=== PATIENT | female | born 1970 | race Caucasian/White ===

== ENCOUNTER 2018-07-10 18:00 | Emergency (ER) | payer MEDICAID ==
[2015-02-13 11:13] VITALS: Wt 90.7 kg
[~2018-07-10 18:00] MED LIST: ALB0.5 INH; ALB18R INH; ALBU2.5V36 IH; ALBU8.5H12 IH; ALBUTEROL INH; AMPH15TA3 PO; AUG500; AUG875 PO; AZIT1PAC21 PO; BENZ100C4 PO; CEF300 PO; CELE-1 PO; CEP500 PO; CEPH250C37 PO; CITA-156 PO; COUGH SYRUP PO; CYCL10TA29 PO; DEMEROL; DEXT10TA9 PO; DIA2 PO; DIA5 PO; DIAZ2TAB72 PO; DIAZEPAM; DIC10 PO; DIPH-740 PO; DOXY-179 PO; DOXY150T6 PO; FAMO20TA28 PO; GABA-547 PO; HCTZ25 PO; HYD2 PO; HYDR-653 PO; HYDR-654 PO; HYDR1TAB; HYDR2TAB41 PO; HYDR2TAB42 PO; HYDR2TAB74 PO; HYDROCHLORTHIAZIDE PO; IPRA3AMP10 IH; KET10 PO; LABE100T28 PO; LACT10SO58 PO; LIDO700A29 TD; LISI2.5T60 PO; LOR5 PO; LOR5/325; LORA10CA3 PO; MEP50 PO; MEPE50TA29; METH0.2T PO; METH0.2T6 PO; METO-566 PO; MULT-859 PO; NO ROUTINE MEDS; NOR10/325 PO; OMEP-114 PO; OND4 PO; ONDA4TAB PO; OXYC-865 PO; OXYC10TA67 PO; OXYC1TAB54 PO; OXYC1TAB78 PO; PANT40TA65 PO; PENI-22 PO; PER PO; PNV1TABL92 PO; PRE20 PO; PRED-1 PO; PRED20TA6 PO; PREN-67 PO; PRO25; PRO25 FT; PRO25 PO; PROM-100 PO; PROM-110 PO; PROM12.546 PO; PROM25S PR; SUCR1ORA17 PO; TRA50 PO; TRAZADONE PO; TRIA80OI13 TP; VENL37.594 PO; VENL75CA58 PO; ZOL5 PO
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
[2018-07-10] MEDS ORDERED: ALBUTEROL/IPRATROPIUM 3 ML NEB NEB ONE (18:30)
[2018-07-10] MEDS ORDERED: NS(*) 0.9% 1000 ML BAG 1,000 ML IV ONE (18:30)
[2018-07-10 19:22] LABS: PLATELET COUNT, AUTOMATED 257 K/uL (150-450)
[2018-07-10] MEDS ORDERED: PROMETHAZINE 25 MG/ML 1 ML AMP IVP ONE (19:25)
--- NOTE | 2018-07-10 19:44 | RADIOLOGY IMAGING REPORT ---
FACILITY: [facility] PATIENT NAME: Lucy Rudolph : 1970 MR: [id number] V: [id number] EXAM DATE: ORDERING PHYSICIAN: TONY HAWKINS TECHNOLOGIST: [place] [facility] [place] Rudolph : 1970 Visit/Account:[id number] Date of Sevice: 07/10/2018 CHEST PA LAT HISTORY: productive cough, fevers COMPARISON: 06/21/2015 FINDINGS: Cardiomediastinal contours: Normal Lungs and pleura: Normal Bones/soft tissues: Normal Other findings: None significant IMPRESSION: 1. Normal chest. No change. Report Dictated By: Shane Zuleta MD at 07/10/2018 7:38 PM Report E-Signed By: Shane Zuleta MD at 07/10/2018 7:39 PM WSN:[id number]
[2018-07-10] MEDS ORDERED: OSE75 PO (19:45)
[2018-07-10 20:30] VITALS: BP 117/73
== END 2018-07-10 20:29 | disposition home or self-care (01) ==
LOC: ER 18:24
DX: J11.1 Influenza due to unidentified influenza virus with other respiratory manifestations (principal)
CPT/HCPCS: 36415; 71046; 85025; 87502; 87653; 94640; 96361; 96374; 99284; J2550; J7030; J7620; 82040; 82247; 82310; 82374; 82435; 82565; 82947; 84075; 84132; 84155; 84295; 84450; 84460; 84520

== ENCOUNTER 2018-08-10 09:21 | Emergency (ER) | payer MEDICAID ==
[2015-02-13 11:13] VITALS: Wt 90.7 kg
[~2018-08-10 09:21] MED LIST changes: +OSE75 PO
--- NOTE | 2018-08-10 09:23 | ER Report ---
History and Physical Time Seen By MD: 09:23 HPI/ROS CHIEF COMPLAINT: Right lower quadrant abdominal pain, nausea, vomiting. HISTORY OF PRESENT ILLNESS: Patient is a 48-year-old female here with complaints of right lower quadrant abdominal pain, nausea, vomiting for the past 3 days. Patient also reports decreased urine output, diarrhea. Patient has a history of a cholecystectomy however denies further abdominal surgeries aside from C-sections. Patient was reportedly treated for influenza on July 10 reportedly recovered in the interim. Patient is nontoxic in appearance, complaining of moderate abdominal pain in the right lower quadrant. REVIEW OF SYSTEMS: Constitutional: + fever, + chills. Eyes: No discharge. ENT: No sore throat. Cardiovascular: No chest pain, no palpitations. Respiratory: No cough, no shortness of breath. Gastrointestinal: + Right lower quadrant abdominal pain, + nausea and vomiting. Genitourinary: No hematuria. Musculoskeletal: + Chronic back pain. Skin: No rashes. Neurological: No headache. Allergies: Coded Allergies: ketorolac (Verified Allergy, Intermediate, NAUSEA,ITCHING, 07/10/18) acetaminophen (Verified Allergy, Mild, HIVES, 07/10/18) codeine (Verified Allergy, Mild, ITCHING, 07/10/18) ibuprofen (Verified Allergy, Mild, liver doesn't process, turns yellow, 07/10/18) sulfamethoxazole (Verified Allergy, Mild, 'LOST VISION', 07/10/18) metoclopramide (Verified Allergy, Unknown, 08/10/18) ondansetron (Verified Allergy, Unknown, 08/10/18) Home Meds Active Scripts Promethazine HCl (Phenergan) 25 Mg Supp.rect, 25 MG [place] Q12H PRN for NAUSEA/VOMITING, #20 SUPP.RECT Prov:BARNEY LEUNG DO 08/10/18 Ipratropium/Albuterol Sulfate (IPRAT-ALBUT 0.5-3(2.5) MG/3 ML) 3 Ml Ampul.neb, 3 ML IH Q6H for sob, #40 Prov:RAFA LUJAN DO 06/21/15 Albuterol Sulfate 0.083% (ALBUTEROL SULFATE 0.083%) 2.5 Mg/3 Ml Vial.neb, 2.5 MG IH Q4H, #1 BOX Prov:ANDREA HE CARRIER ASSOCIATE 03/15/14 Discontinued Reported Medications Albuterol Sul Hfa 90 Mcg 8 Gm (VENTOLIN HFA 90 MCG 8 GM) 8.5 Gm Hfa.aer.ad, 2 PUFF IH Q4H, #1 INHALER 02/13/15 Oxycodone Hcl 10 Mg Tab (OXYCODONE HCL 10 MG TAB) 10 Mg Tablet, 30 MG PO Q6H 02/13/15 Amphet Asp/Amphet/D-Amphet (ADDERALL 15 MG TABLET) 15 Mg Tablet, 15 MG PO BIDBL 02/13/15 Promethazine Hcl (PROMETHAZINE HCL) 25 Mg Tablet, 1 TAB PO PRN 07/08/13 Discontinued Scripts Oseltamivir Phosphate (TAMIFLU) 75 Mg Cap, 75 MG PO BID, #9 CAP Prov:TONY HAWKINS WARRANT CLERK-BC 07/10/18 Prednisone (PREDNISONE) 20 Mg Tablet, 40 MG PO QDAY for allergy, #14 TAB Prov:DUARTE AVALOS MD 07/26/15 Hx Smoking: No Smoking Status: Never Smoker Exposure to Second Hand Smoke?: Yes Hx Substance Use Disorder: No Hx Alcohol Use: No Constitutional Vital Sign - Last 24 Hours 08/10/18 08/10/18 08/10/18 08/10/18 09:21 09:26 09:30 09:36 Temp 98.1 Pulse ??? 94 ??? Resp 18 B/P (MAP) 164/103 164/103 (123) Pulse Ox 93 O2 Delivery Room Air 08/10/18 08/10/18 08/10/18 08/10/18 09:51 10:06 10:21 10:27 Pulse ??? 89 87 B/P (MAP) ???/??? (1665) Pulse Ox 93 95 08/10/18 08/10/18 08/10/18 08/10/18 10:36 10:52 11:00 11:06 Pulse 93 82 B/P (MAP) 169/98 (121) 155/97 (116) Pulse Ox 95 98 08/10/18 08/10/18 08/10/18 08/10/18 11:11 11:26 11:30 11:41 Pulse 84 92 85 B/P (MAP) 157/110 (126) Pulse Ox 95 99 97 08/10/18 08/10/18 08/10/18 08/10/18 11:56 12:00 12:11 12:26 Pulse 88 88 80 B/P (MAP) 159/104 (122) Pulse Ox 94 98 97 08/10/18 12:30 B/P (MAP) 166/104 (124) Physical Exam General Appearance: The patient is alert, has no immediate need for airway protection and no signs of toxicity. No acute distress Eyes: Pupils equal and round no pallor or injection. ENT, Mouth: Mucous membranes are moist. Respiratory: There are no retractions, lungs are clear to auscultation. Cardiovascular: Regular rate and rhythm. Gastrointestinal: Abdomen is soft and + tender in the right lower quadrant, nondistended, no rebound or guarding present. Neurological: No focal neurological findings Skin: Warm and dry, no rashes. Musculoskeletal: Neck is supple non tender. Extremities are nontender, nonswollen and have full range of motion. DIFFERENTIAL DIAGNOSIS: After history and physical exam differential diagnosis was considered for abdominal pain including but not limited to appendicitis, cholecystitis, gastritis and urinary tract infection. Medical Decision Making Data Points Result Diagram: 08/10/18 0954 08/10/18 0954 Laboratory Hematology Test 08/10/18 09:54 08/10/18 10:51 Red Blood Count 4.97 M/uL (4.17-5.56) Mean Corpuscular Volume 72.4 fL (80.0-96.0) Mean Corpuscular Hemoglobin 22.9 pg (26.0-33.0) Mean Corpuscular Hemoglobin Concent 31.6 g/dL (32.0-36.0) Red Cell Distribution Width 19.5 % (11.5-14.5) Mean Platelet Volume 8.7 fL (7.2-11.1) Neutrophils (%) (Auto) 77.4 % (39.4-72.5) Lymphocytes (%) (Auto) 13.5 % (17.6-49.6) Monocytes (%) (Auto) 6.2 % (4.1-12.4) Eosinophils (%) (Auto) 2.2 % (0.4-6.7) Basophils (%) (Auto) 0.7 % (0.3-1.4) Nucleated RBC Relative Count (auto) 0.0 /100WBC Neutrophils # (Auto) 7.0 K/uL (2.0-7.4) Lymphocytes # (Auto) 1.2 K/uL (1.3-3.6) Monocytes # (Auto) 0.6 K/uL (0.3-1.0) Eosinophils # (Auto) 0.2 K/uL (0.0-0.5) Basophils # (Auto) 0.1 K/uL (0.0-0.1) Nucleated RBC Absolute Count (auto) 0.00 K/uL Sodium Level 143 mmol/L (137-145) Potassium Level 3.8 mmol/L (3.5-5.0) Chloride Level 113 mmol/L (98-107) Carbon Dioxide Level 22 mmol/L (22-31) Blood Urea Nitrogen 9 mg/dl (7-18) Creatinine 0.60 mg/dl (0.52-1.04) Glomerular Filtration Rate Calc > 60.0 Random Glucose 89 mg/dl (75-110) Calcium Level 8.8 mg/dl (8.4-10.2) Total Bilirubin 0.3 mg/dl (0.2-1.3) Aspartate Amino Transf (AST/SGOT) 22 U/L (0-35) Alanine Aminotransferase (ALT/SGPT) 22 U/L (0-56) Alkaline Phosphatase 82 U/L (0-126) Total Protein 7.5 g/dl (6.3-8.2) Albumin 4.1 g/dl (3.5-5.0) Lipase 339 U/L (23-300) Urine Color Yellow Urine Clarity Clear Urine pH 6.0 pH (4.8-9.5) Urine Specific [place] 1.019 Urine Protein Negative mg/dL (NEGATIVE) Urine Glucose (UA) Negative mg/dL (NEGATIVE) Urine Ketones Negative mg/dL (NEGATIVE) Urine Blood Large (NEGATIVE) Urine Nitrite Negative (NEGATIVE) Urine Bilirubin Negative (NEGATIVE) Urine Urobilinogen Negative mg/dL (0.2-1.9) Urine Leukocyte Esterase Negative (NEGATIVE) Urine RBC 22 /HPF (0-2/HPF) Urine WBC 2 /HPF (0-5/HPF) Urine Squamous Epithelial Cells Many /LPF (</=FEW) Urine Bacteria Negative /HPF (NONE-FEW) Urine Hyaline Casts Few /LPF (NONE-FEW) Urine Mucus Few /HPF (NONE-FEW) Chemistry Test 08/10/18 09:54 08/10/18 10:51 White Blood Count 9.0 k/uL (4.5-11.0) Red Blood Count 4.97 M/uL (4.17-5.56) Hemoglobin 11.4 g/dL (12.0-16.0) Hematocrit 36.0 % (34.0-47.0) Mean Corpuscular Volume 72.4 fL (80.0-96.0) Mean Corpuscular Hemoglobin 22.9 pg (26.0-33.0) Mean Corpuscular Hemoglobin Concent 31.6 g/dL (32.0-36.0) Red Cell Distribution Width 19.5 % (11.5-14.5) Platelet Count 373 K/uL (150-450) Mean Platelet Volume 8.7 fL (7.2-11.1) Neutrophils (%) (Auto) 77.4 % (39.4-72.5) Lymphocytes (%) (Auto) 13.5 % (17.6-49.6) Monocytes (%) (Auto) 6.2 % (4.1-12.4) Eosinophils (%) (Auto) 2.2 % (0.4-6.7) Basophils (%) (Auto) 0.7 % (0.3-1.4) Nucleated RBC Relative Count (auto) 0.0 /100WBC Neutrophils # (Auto) 7.0 K/uL (2.0-7.4) Lymphocytes # (Auto) 1.2 K/uL (1.3-3.6) Monocytes # (Auto) 0.6 K/uL (0.3-1.0) Eosinophils # (Auto) 0.2 K/uL (0.0-0.5) Basophils # (Auto) 0.1 K/uL (0.0-0.1) Nucleated RBC Absolute Count (auto) 0.00 K/uL Glomerular Filtration Rate Calc > 60.0 Calcium Level 8.8 mg/dl (8.4-10.2) Total Bilirubin 0.3 mg/dl (0.2-1.3) Aspartate Amino Transf (AST/SGOT) 22 U/L (0-35) Alanine Aminotransferase (ALT/SGPT) 22 U/L (0-56) Alkaline Phosphatase 82 U/L (0-126) Total Protein 7.5 g/dl (6.3-8.2) Albumin 4.1 g/dl (3.5-5.0) Lipase 339 U/L (23-300) Urine Color Yellow Urine Clarity Clear Urine pH 6.0 pH (4.8-9.5) Urine Specific [place] 1.019 Urine Protein Negative mg/dL (NEGATIVE) Urine Glucose (UA) Negative mg/dL (NEGATIVE) Urine Ketones Negative mg/dL (NEGATIVE) Urine Blood Large (NEGATIVE) Urine Nitrite Negative (NEGATIVE) Urine Bilirubin Negative (NEGATIVE) Urine Urobilinogen Negative mg/dL (0.2-1.9) Urine Leukocyte Esterase Negative (NEGATIVE) Urine RBC 22 /HPF (0-2/HPF) Urine WBC 2 /HPF (0-5/HPF) Urine Squamous Epithelial Cells Many /LPF (</=FEW) Urine Bacteria Negative /HPF (NONE-FEW) Urine Hyaline Casts Few /LPF (NONE-FEW) Urine Mucus Few /HPF (NONE-FEW) Urinalysis Test 08/10/18 10:51 Urine Color Yellow Urine Clarity Clear Urine pH 6.0 pH (4.8-9.5) Urine Specific [place] 1.019 Urine Protein Negative mg/dL (NEGATIVE) Urine Glucose (UA) Negative mg/dL (NEGATIVE) Urine Ketones Negative mg/dL (NEGATIVE) Urine Blood Large (NEGATIVE) Urine Nitrite Negative (NEGATIVE) Urine Bilirubin Negative (NEGATIVE) Urine Urobilinogen Negative mg/dL (0.2-1.9) Urine Leukocyte Esterase Negative (NEGATIVE) Urine RBC 22 /HPF (0-2/HPF) Urine WBC 2 /HPF (0-5/HPF) Urine Squamous Epithelial Cells Many /LPF (</=FEW) Urine Bacteria Negative /HPF (NONE-FEW) Urine Hyaline Casts Few /LPF (NONE-FEW) Urine Mucus Few /HPF (NONE-FEW) EKG/Imaging Imaging Location: [facility] Patient: Lucy Rudolph : 1970 Visit/Account:[id number] Date of Sevice: 08/10/2018 CT ABDOMEN PELVIS W/ CON HISTORY: Flu a couple of weeks ago now has right-sided pain and back pain TECHNIQUE: Following administration of IV contrast contiguous axial images acquired through the abdomen/pelvis. Coronal and sagittal reformatting also performed.Dose Lowering Technique One of the following dose optimization techniques was utilized in the performance of this exam: Automated exposure control; adjustment of the mA and/or kV according to the patient's size; or use of an iterative reconstruction technique. Specific details can be referenced in the facility's radiology CT exam operational policy. CONTRAST: 75 mL Isovue-370 COMPARISON: CT chest abdomen and pelvis May 11, 2012 and CTA chest June 02, 2015 FINDINGS: Visualized lung bases: Negative. Hepatobiliary: There postsurgical changes from a cholecystectomy . There is an area of decreased attenuation adjacent to the falciform ligament which may represent an area of focal fatty infiltration. Liver is mildly enlarged measuring 20.5 cm in length slightly increased when compared the prior study Spleen: Negative. Adrenals: Negative. Pancreas: Negative. Kidneys ureters or bladder: Negative. Genitalia: Uterus appears mildly prominent. There is a 2.1 cm left ovarian cyst GI: Negative. Vessels/spaces/nodes: There is a 1.6 x 1 cm periportal lymph node is slightly increased in size when compared the prior study. There are other smaller portal caval lymph nodes that have remained stable. There are are prominent external iliac lymph nodes bilaterally that have slightly increased when compared the prior study. Room Clerk lymph node on the right measures 2.1 x 1.3 cm and on the left 1.9 x 1.5 cm. There is a left periaortic lymph node just below the level of the left renal artery measuring 1.3 x 0.9 cm which is minimally increased there are other shotty retroperitoneal lymph nodes that appear relatively unchanged Bones/soft tissues: There is been a prior incision in the lower anterior pelvic wall likely related to prior . There are mild spondylotic changes in the lower lumbar spine which are slightly increased when compared the prior study. There is a grade 1 anterior listhesis of L4 with respect L5 with a prominent bulging disc at this level. There is a 2 mm retrolisthesis of L5 with respect S1 Additional findings: None pertinent. IMPRESSION: There post surgical changes from cholecystectomy An area of decreased attenuation adjacent to the falciform ligament may represent an area of focal fatty infiltration. There is mild hepatomegaly slightly increased when compared the prior study The uterus is mildly prominent. 2.1 cm left ovarian cyst There is mildly prominent periportal adenopathy slightly increased when compared the prior study. Bilateral external iliac lymph nodes are also slightly increased. A left periaortic lymph node also slightly increased. These findings may be reactive in nature although clinical correlation needed to exclude a lymphoproliferative process Increasing spondylotic changes of the lower lumbar spine as detailed above ED Course/Re-evaluation ED Course Patient is a 48-year-old female here with complaints of right lower quadrant abdominal pain, diarrhea, nausea, vomiting. Patient was treated for influenza on July 10. Labs were remarkable for mild elevation of lipase were otherwise unremarkable leukocytosis or electrolyte abnormality. Patient was given analgesics while in the emergency department however she does have a treatment plan so outpatient analgesics will be deferred to patient's prescribing physician. CT imaging was significant for scattered abdominal adenopathy likely reactive in nature given the patient's recent viral syndrome with influenza. Patient was able tolerate oral intake prior to discharge. Recommend close PCP follow-up. Return precautions provided. Decision to Disposition Date: Aug 10, 2018 Decision to Disposition Time: 11:50 Depart Departure Latest Vital Signs Vital Signs Date Time Temp Pulse Resp B/P (MAP) Pulse Ox O2 Delivery O2 Flow Rate FiO2 08/10/18 12:30 166/104 (124) 08/10/18 12:26 80 97 08/10/18 09:26 98.1 18 Room Air Impression: Primary Impression: Abdominal pain Condition: Improved Disposition: HOME OR SELF-CARE New Scripts Promethazine HCl (Phenergan) 25 Mg Supp.rect 25 MG [place] Q12H PRN for NAUSEA/VOMITING, #20 SUPP.RECT Prov: BARNEY LEUNG DO 08/10/18 Patient Instructions: Abdominal Pain (ED) Additional Instructions: Please drink plenty of water. You may take your Compazine or Phenergan suppositories as needed for nausea. Please return immediately if you develop fevers, worsening pain, inability to keep down food or fluids, blood in the stools or urine. Please follow-up with her family doctor in the next 24-48 hours. BARNEY LEUNG DO Aug 10, 2018 09:23
[2018-08-10] MEDS ORDERED: NS(*) 0.9% 1000 ML BAG 1,000 ML IV ONE (09:26)
[2018-08-10] MEDS ORDERED: PROMETHAZINE 25 MG/ML 1 ML AMP IVP ONE (09:30)
[2018-08-10] MEDS ORDERED: IOPAMIDOL 76% 75 ML INFUS BTL 0 ML ONE (09:59)
[2018-08-10] MEDS ORDERED: fentaNYL CITR 100 MCG/2 ML AMP IVP ONE (10:00)
[2018-08-10 10:05] LABS: PLATELET COUNT, AUTOMATED 373 K/uL (150-450)
[2018-08-10] MEDS ORDERED: IOPAMIDOL 76% 75 ML INFUS BTL 75 ML ONE (10:40)
[2018-08-10] MEDS ORDERED: HYDROMORPHONE HCL 1 MG/ML SYRINGE IVP ONE (11:10)
--- NOTE | 2018-08-10 11:29 | RADIOLOGY IMAGING REPORT ---
FACILITY: [facility] - [place] PATIENT NAME: Lucy Rudolph : 1970 MR: [id number] V: [id number] EXAM DATE: ORDERING PHYSICIAN: BARNEY LEUNG TECHNOLOGIST: Location: [facility] - [place] Patient: Lucy Rudolph : 1970 Visit/Account:[id number] Date of Sevice: 08/10/2018 CT ABDOMEN PELVIS W/ CON HISTORY: Flu a couple of weeks ago now has right-sided pain and back pain TECHNIQUE: Following administration of IV contrast contiguous axial images acquired through the abdom en/pelvis. Coronal and sagittal reformatting also performed.Dose Lowering Technique One of the following dose optimization techniques was utilized in the performance of this exam: Autom ated exposure control; adjustment of the mA and/or kV according to the patient's size; or use of an i terative reconstruction technique. Specific details can be referenced in the facility's radiology C T exam operational policy. CONTRAST: 75 mL Isovue-370 COMPARISON: CT chest abdomen and pelvis May 11, 2012 and CTA chest June 02, 2015 FINDINGS: Visualized lung bases: Negative. Hepatobiliary: There postsurgical changes from a cholecystectomy . There is an area of decreased a ttenuation adjacent to the falciform ligament which may represent an area of focal fatty infiltration . Liver is mildly enlarged measuring 20.5 cm in length slightly increased when compared the prior st Spleen: Negative. Adrenals: Negative. Pancreas: Negative. Kidneys ureters or bladder: Negative. Genitalia: Uterus appears mildly prominent. There is a 2.1 cm left ovarian cyst GI: Negative. Vessels/spaces/nodes: There is a 1.6 x 1 cm periportal lymph node is slightly increased in size when compared the prior study. There are other smaller portal caval lymph nodes that have remained stabl e. There are are prominent external iliac lymph nodes bilaterally that have slightly increased when comp ared the prior study. Grinder Machine Knife Setter lymph node on the right measures 2.1 x 1.3 cm and on the left 1 .9 x 1.5 cm. There is a left periaortic lymph node just below the level of the left renal artery measuring 1.3 x 0 .9 cm which is minimally increased there are other shotty retroperitoneal lymph nodes that appear rel atively unchanged Bones/soft tissues: There is been a prior incision in the lower anterior pelvic wall likely related to prior . There are mild spondylotic changes in the lower lumbar spine which are slightly increased when compared the prior study. There is a grade 1 anterior listhesis of L4 with respect L 5 with a prominent bulging disc at this level. There is a 2 mm retrolisthesis of L5 with respect S1 Additional findings: None pertinent. IMPRESSION: There post surgical changes from cholecystectomy An area of decreased attenuation adjacent to the falciform ligament may represent an area of focal fa tty infiltration. There is mild hepatomegaly slightly increased when compared the prior study The uterus is mildly prominent. 2.1 cm left ovarian cyst There is mildly prominent periportal adenopathy slightly increased when compared the prior study. Bilateral external iliac lymph nodes are also slightly increased. A left periaortic lymph node also slightly increased. These findings may be reactive in nature although clinical correlation needed to exclude a lymphoproliferative process Increasing spondylotic changes of the lower lumbar spine as detailed above Report Dictated By: Neha Negrete MD at 08/10/2018 11:06 AM Report E-Signed By: Neha Negrete MD at 08/10/2018 11:25 AM WSN:[id number]
[2018-08-10] MEDS ORDERED: PROCHLORPERAZINE MAL 5 MG TAB PO ONE (11:35)
[2018-08-10] MEDS ORDERED: PROM25SU8 PR (11:52)
[2018-08-10 12:30] VITALS: BP 166/104
== END 2018-08-10 12:48 | disposition home or self-care (01) ==
LOC: ER 09:35
DX: R10.31 Right lower quadrant pain (principal)
CPT/HCPCS: 74177; 81001; 83690; 85025; 96361; 96374; 96375; 99284; J1170; J2550; J3010; J7030; Q0164; Q9967; 82040; 82247; 82310; 82374; 82435; 82565; 82947; 84075; 84132; 84155; 84295; 84450; 84460; 84520

== ENCOUNTER 2018-11-01 23:07 | Emergency (ER) | payer MEDICAID ==
[2015-02-13 11:13] VITALS: Wt 90.7 kg
[~2018-11-01 23:07] MED LIST changes: +PROM25SU8 PR
--- NOTE | 2018-11-01 23:17 | ER Report ---
History and Physical Time Seen By MD: 23:17 Hx. of Stated Complaint: SOB, ASTHMA EXACERBATION, DENTAL PAIN HPI/ROS CHIEF COMPLAINT: short of breath, dental pain HISTORY OF PRESENT ILLNESS: This is a 48 year old female. She is having trouble with her asthma. Visiting from out of town, and does not have her nebulizer. Using her albuterol inhaler, which helps temporarily, but wheezing more and cough. Denies fever or chills. Had a rash and tightness in her throat tonight. Has dental pain with swelling on lower right jaw which seems to be improving a little bit. Allergies: Coded Allergies: ketorolac (Verified Allergy, Intermediate, NAUSEA,ITCHING, 11/01/18) acetaminophen (Verified Allergy, Mild, HIVES, 11/01/18) codeine (Verified Allergy, Mild, ITCHING, 11/01/18) ibuprofen (Verified Allergy, Mild, liver doesn't process, turns yellow, 11/01/18) sulfamethoxazole (Verified Allergy, Mild, 'LOST VISION', 11/01/18) metoclopramide (Verified Allergy, Unknown, 11/01/18) ondansetron (Verified Allergy, Unknown, 11/01/18) Home Meds Active Scripts Amoxicillin (AMOXICILLIN) 500 Mg Capsule, 1 CAP PO Q8H, #30 CAPSULE 0 Refills Prov:ODESSA SALAS MD 11/02/18 Prednisone (PREDNISONE) 20 Mg Tablet, 60 MG PO QDAY, #12 TAB 0 Refills Prov:ODESSA SALAS MD 11/02/18 Promethazine HCl (Phenergan) 25 Mg Supp.rect, 25 MG [place] Q12H PRN for N AUSEA/VOMITING, #20 SUPP.RECT Prov:BARNEY LEUNG DO 08/10/18 Ipratropium/Albuterol Sulfate (IPRAT-ALBUT 0.5-3(2.5) MG/3 ML) 3 Ml Ampul.neb, 3 ML IH Q6H for sob, #40 Prov:RAFA LUJAN DO 06/21/15 Albuterol Sulfate 0.083% (ALBUTEROL SULFATE 0.083%) 2.5 Mg/3 Ml Vial.neb, 2.5 MG IH Q4H, #1 BOX Prov:ANDREA HE DIRECTOR OF CASEWORK 03/15/14 Reviewed Nurses Notes: Yes Hx Smoking: No Smoking Status: Never Smoker Exposure to Second Hand Smoke?: Yes Hx Substance Use Disorder: No Hx Alcohol Use: No Constitutional Vital Sign - Last 24 Hours 11/01/18 11/01/18 11/01/18 11/01/18 23:07 23:12 23:13 23:36 Temp 98.3 Pulse ??? 126 113 Resp 18 20 B/P (MAP) 180/109 180/109 (132) Pulse Ox 91 O2 Delivery Room Air 11/01/18 11/01/18 11/01/18 11/02/18 23:37 23:39 23:45 00:00 Pulse 111 114 Resp 18 B/P (MAP) 179/78 (111) 159/90 (113) Pulse Ox 100 11/02/18 11/02/18 11/02/18 00:07 00:30 00:37 Pulse 107 110 B/P (MAP) 155/88 (110) Pulse Ox 94 94 Physical Exam General Appearance: Alert, no acute distress. Eyes: Pupils equal and round no injection. ENT: Normal oral mucosa. Moist mucous membranes. Has some pain and swelling lower right jaw, poor dentition with teeth broken off at gum line, some redness and swelling of gums. Tympanic membranes are normal. Neck: Neck is supple and non tender. Respiratory: Chest is non tender, lungs with expiratory wheezing and poor air movement. Cardiac: regular rate and rhythm Skin: No rashes or lesions. DIFFERENTIAL DIAGNOSIS: After history and physical exam differential diagnosis was considered for patient with asthma exacerbation with wheezing and cough, also with what appears to be a dental infection but no sign of abscess. Medical Decision Making EKG/Imaging Imaging CHEST: Indication: Cough and dyspnea. History of asthma. Technique: Frontal and lateral views were obtained. Comparison: 07/10/2018 Skeletal and soft tissue structures: There are mild degenerative changes in the thoracic spine. No acute skeletal deformity is identified. Heart and mediastinum: Within normal limits. Lung hyman: Well-expanded and clear. No focal opacities. Pleural spaces: Unremarkable. Impression: No acute process or significant change. Report Dictated By: Sp De Jesus MD at 11/02/2018 12:14 AM ED Course/Re-evaluation ED Course Improved with DuoNeb treatment. Better air movement less wheezing. Prednisone given and has less swelling better breathing. We'll start her on amoxicillin for her dental pain. Chest x-ray negative. Providing a Combivent inhaler. Decision to Disposition Date: November 02, 2018 Decision to Disposition Time: 00:24 Depart Departure Latest Vital Signs Vital Signs Date Time Temp Pulse Resp B/P (MAP) Pulse Ox O2 Delivery O2 Flow Rate FiO2 11/02/18 00:37 110 94 11/02/18 00:30 155/88 (110) 11/01/18 23:39 18 11/01/18 23:12 98.3 Room Air Impression: Primary Impression: Asthma exacerbation Additional Impressions: Allergic reaction Pain, dental Condition: Improved Disposition: HOME OR SELF-CARE New Scripts Amoxicillin (AMOXICILLIN) 500 Mg Capsule 1 CAP PO Q8H, #30 CAPSULE 0 Refills Prov: ODESSA SALAS MD 11/02/18 Prednisone (PREDNISONE) 20 Mg Tablet 60 MG PO QDAY, #12 TAB 0 Refills Prov: ODESSA SALAS MD 11/02/18 Additional Instructions: Take Prednisone 20mg tablets, 3 tablets once a day for 4 more days. Benadryl 25mg tablets, one every 6 hours as needed for rash or swelling. Combivent inhaler, 2 inhalations every 6 hours as needed for wheezing or shortness of breath. Start Amoxicillin 500mg three times a day for 10 days and follow-up with your dentist. Problem Qualifiers Primary Impression: Asthma exacerbation Asthma severity: moderate Asthma persistence: persistent Qualified Codes: J45.41 - Moderate persistent asthma with (acute) exacerbation Additional Impressions: Allergic reaction Encounter type: initial encounter Qualified Codes: T78.40XA - Allergy, unspecified, initial encounter ODESSA SALAS MD November 01, 2018 23:17
[2018-11-01] MEDS ORDERED: ALBUTEROL/IPRATROPIUM 3 ML NEB NEB ONE (23:25)
[2018-11-01] MEDS ORDERED: predniSONE 20 MG TAB PO ONE (23:25)
--- NOTE | 2018-11-02 00:18 | RADIOLOGY IMAGING REPORT ---
FACILITY: [facility] - [place] PATIENT NAME: Lucy Rudolph : 1970 MR: [id number] V: [id number] EXAM DATE: ORDERING PHYSICIAN: ODESSA SALAS TECHNOLOGIST: Location: [facility] [place] Patient: Lucy Rudolph : 1970 Visit/Account:[id number] Date of Sevice: 11/01/2018 CHEST: Indication: Cough and dyspnea. History of asthma. Technique: Frontal and lateral views were obtained. Comparison: 07/10/2018 Skeletal and soft tissue structures: There are mild degenerative changes in the thoracic spine. No ac [place] skeletal deformity is identified. Heart and mediastinum: Within normal limits. Lung hyman: Well-expanded and clear. No focal opacities. Pleural spaces: Unremarkable. Impression: No acute process or significant change. Report Dictated By: Sp De Jesus MD at 11/02/2018 12:14 AM Report E-Signed By: Sp De Jesus MD at 11/02/2018 12:15 AM WSN:[id number]
[2018-11-02] MEDS ORDERED: AMOX-362 PO (00:25)
[2018-11-02] MEDS ORDERED: AMOXICILLIN 500 MG CAP PO ONE (00:25)
[2018-11-02] MEDS ORDERED: PRED20TA6 PO (00:25)
[2018-11-02] MEDS ORDERED: COMBIVENT 4 GR INHALER IH ONE (00:25)
[2018-11-02 00:30] VITALS: BP 155/88
== END 2018-11-02 00:42 | disposition home or self-care (01) ==
LOC: ER 23:25
DX: J45.41 Moderate persistent asthma with (acute) exacerbation (principal); T78.40XA Allergy, unspecified, initial encounter; K08.89 Other specified disorders of teeth and supporting structures
CPT/HCPCS: 71046; 94640; 99284; J3535; J7512; J7620